=== PATIENT | male | born 1990 | race Caucasian/White ===

== ENCOUNTER 2019-01-29 01:24 | Emergency (ER) | payer OTHER ==
[2019-01-29 01:51] VITALS: BP 121/70; PULSE 77; TEMP 98.2; BMI 19.6
--- NOTE | 2019-01-29 03:58 | PDOC ---
History of Present Illness - General Chief Complaint: Chest Pain Stated Complaint: CHEST PAIN Time Seen by Provider: 01/29/19 02:18 History Source: Patient Exam Limitations: No Limitations - History of Present Illness Initial Comments: 01/29/19 03:49 28 yo male pmh chronic bilateral foot pain, panic attacks, chest palpitations and left arm numbness presents to the ER for chest palpitations. Pt states while sitting in his couch at 1 am Past History - Past Medical History Allergies/Adverse Reactions: Allergies Allergy/AdvReac Type Severity Reaction Status Date / Time No Known Allergies Allergy Verified 01/29/19 01:40 Home Medications: Ambulatory Orders NK [No Known Home Medication] 01/29/19 Cardiac Disorders: Yes (PVC) COPD: No - Immunization History Immunization Up to Date: Yes - Suicide/Smoking/Psychosocial Hx Smoking History: Former smoker Have you smoked in the past 12 months: No If you are a former smoker, when did you quit?: 1 Information on smoking cessation initiated: No Hx Alcohol Use: No Drug/Substance Use Hx: No *Physical Exam - Vital Signs Last Vital Signs Temp Pulse Resp BP Pulse Ox 98.2 F 77 20 121/70 97 01/29/19 01:40 01/29/19 01:40 01/29/19 01:40 01/29/19 01:40 01/29/19 01:40 ED Treatment Course - LABORATORY CBC & Chemistry Diagram: 01/29/19 03:56 01/29/19 03:56 - RADIOLOGY Radiology Studies Ordered: Category Date Time Status CHEST PA & LAT [RAD] Stat Radiology 01/29/19 03:41 Ordered *DC/Admit/Observation/Transfer Diagnosis at time of Disposition: Palpitation - Discharge Dispostion Disposition: HOME Condition at time of disposition: Stable Decision to Admit order: No - Referrals Referrals: Fitz Vail MD [Primary Care Provider] - - Patient Instructions Printed Discharge Instructions: DI for Palpitations, DI for Arrhythmias Additional Instructions: Please see your appointment with your Primary Doctor within the next 48 hours. See your Tailer Out as soon as possible and discuss having a holter monitor placed. Return to the ER for new or concerning symptoms including but not limited to: chest pain, difficulty breathing, back pain. Thank you - Post Discharge Activity
[2019-01-29 04:49] LABS: BASO % 0.6 % (0-2.0); EOS % 2.6 % (0-4.5); HEMATOCRIT 43.8 % (35.4-49); HEMOGLOBIN 14.4 GM/dL (11.7-16.9); LYMPH % 35.6 % (8-40); MCH 26.1 pg (25.7-33.7); MCHC 32.9 g/dl (32.0-35.9); MEAN CELL VOLUME 79.4 fl (80-96); MEAN PLT VOLUME 10.1 fl (7.5-11.1); NEUT % 53.2 % (42.8-82.8); PLATELET COUNT 173 K/MM3 (134-434); RBC 5.52 M/mm3 (4.00-5.60); RDW 13.6 % (11.9-15.9); WHITE BLOOD COUNT 7.4 K/mm3 (4.0-10.0)
[2019-01-29 05:01] LABS: ALBUMIN 4.5 g/dl (3.4-5.0); BILIRUBIN,TOTAL 0.4 mg/dL (0.2-1); BLOOD UREA NITROGEN 23.8 mg/dL (7-18); CALCIUM 9.3 mg/dL (8.5-10.1); CREATININE 0.9 mg/dL (0.55-1.3); POTASSIUM 3.6 mmol/L (3.5-5.1); TOT PROT 7.1 g/dl (6.4-8.2)
--- NOTE | 2019-01-29 05:12 | PDOC ---
Attending Attestation - Resident Resident Name: Jac Pérez - ED Attending Attestation I have performed the following: I have examined & evaluated the patient, The case was reviewed & discussed with the resident, I agree w/resident's findings & plan, Exceptions are as noted - HPI HPI: 01/29/19 05:10 28 M with no PMH presents to ED with palpitations. Pt states that he was sitting on the couch when he felt his heart skip several times. Denies CP/SOB. Denies lightheadedness/dizziness. States that the symptoms resolved spontaneously. He currently denies any symptoms. Pt has been seen by a attendant honor bar in the past for similar symptoms and was told he had PVCs. - Physicial Exam PE: 01/29/19 05:11 "GENERAL: Awake, alert, and fully oriented, in no acute distress. HEAD: No signs of trauma EYES: PERRLA, EOMI, sclera anicteric, conjunctiva clear ENT: Auricles normal inspection, hearing grossly normal, nares patent, oropharynx clear without exudates. Moist mucosa NECK: Nontender, no stepoffs, Normal ROM, supple, no lymphadenopathy, JVD, or masses LUNGS: Breath sounds equal, clear to auscultation bilaterally. No wheezes, and no crackles HEART: Regular rate and rhythm, normal S1 and S2, no murmurs, rubs or gallops ABDOMEN: Soft, nontender, normoactive bowel sounds. No guarding, no rebound. No masses EXTREMITIES: Normal range of motion, no edema. No clubbing or cyanosis. No cords, erythema, or tenderness NEUROLOGICAL: Cranial nerves II through XII intact. 5/5 strength and sensation in all extremities, Normal speech, normal gait, normal cerebellar function SKIN: Warm, Dry, normal turgor, no rashes or lesions noted. - Medical Decision Making 01/29/19 05:12 28 M with palpitations, now resolved. Pt with normal EKG, no evidence of arrhythmia. Possible paroxysmal arrhythmia. - Labs - Monitor in ED 01/29/19 06:04 TSH mildly elevated, pt without any s/s hypothyroidism Labs otherwise wnl Pt is well appearing, with normal vitals. Clinically stable for DC at this time. I discussed the physical exam findings, ancillary test results and final diagnoses with the patient. I answered all of the patient's questions. The patient was satisfied with the care received and felt comfortable with the discharge plan and treatment plan. The patient agrees to follow up with the primary care physician within 24-72 hours.
--- NOTE | 2019-01-29 13:59 | EKG ---
Test Reason : Blood Pressure : / mmHG Vent. Rate : 086 BPM Atrial Rate : 086 BPM P-R Int : 118 ms QRS Dur : 094 ms QT Int : 356 ms P-R-T Axes : 078 086 069 degrees QTc Int : 426 ms NORMAL SINUS RHYTHM WITH SINUS ARRHYTHMIA NORMAL ECG NO PREVIOUS ECGS AVAILABLE Confirmed by GIOAVNA CAPELLAN MD ([id number]) on 01/29/2019 1:59:13 PM Referred By: Confirmed By:GIOVANA CAPELLAN MD
== END 2019-01-29 06:34 | disposition home or self-care (01) ==
LOC: EDBD 01:24 → JER 01:24
DX: R00.2 Palpitations (principal); Z87.891 Personal history of nicotine dependence
CPT/HCPCS: 36415; 71046-TC-FY; 80053; 82550; 82553; 84443; 84484; 85025; 93005; 93010; 99283-25